=== PATIENT | female | born 1950 | race Caucasian/White ===

== ENCOUNTER 2017-12-04 12:00 | Outpatient (RCR) | payer MEDICARE, BC, SELFPAY ==
--- NOTE | 2017-12-04 12:00 | PTDS_ITS ---
Date: 12/04/17 Referring: Chasity Villatoro NP Diagnosis: R sacroiliitis PT Dx: R sided DJD, spondylolisthesis, Levoscoliosis, intrinsic weakness and poor stability. Reporting period: 09/20/17 to 12/04/17 Subjective: Kristy presenting to PT after one month absence while completing her self maintenance program as prescribed. She reports she is doing excellent. She has now returned to some crafting type activities which involve her reaching forward without pain. She is walking, completing all functional activities without any discomfort what so ever. She is compliant with her exercises, doing some or all of them on a daily basis. She continues with aquatic therapy 2x a week. Standardized Measures: MOLBPDQ: 0% Objective: Posture: Mild scoliotic curvature, elevation of R ilium vs L, accommodated by heel lift. Gait: WNL Palpation: Unremarkable through lumbopelvic region. ROM: Lumbar spine: WNL throughout without discomfort. Mild segmental hypomobility through lumbar spine. Hips: WNL and non-irritable bilaterally. Strength: Intrinsic strength is excellent, able to maintain stability of pelvis with both kathe open/close chain activities as well as standing weight bearing tasks. Gross strength is 5/5 throughout Neuro: WNL bilateral LE screen. Balance: WNL Treatment: Therapeutic Procedure [id number]: Complete above assessment and review compliance and need for consistency of her current strengthening program to continue maintaining her current condition. Also review importance of not completing anything too heavy or far away from her body, follow proper body press operator suggestions as per previous sessions. Treatment Time: 20 MINS Assessment: Nessa is appropriate for outpatient PT discharge, due to lack of remarkable impairment or functional level limitation. While she does continue to have some segmental limitations through the lumbar spine, this is consistent with her underlying arthritis. She has made great gains and has remained compliant with her strengthening program, now returning to a majority of her functional activities including craft work, which use to bother her without difficulty. Her progress is quite remarkable considering her failure to prior treatments of spine clinic and injections. G-Codes: Primary limitation was in the category of mobility, walking and moving around with discharge of [id number] based on MOLBPDQ, with projected goal of [id number]. GOALS HAVE ALL BE MET. STG: . 1: Patient feels she is able to attempt light yard work and gardening without fear of pain and without pain exceeding a 2/10 after 60 mins: 2: Patient is reporting a catching and locking of her back to be decreased by 25% since initiating PT service: 3: Patient reporting more consistency of pain presentation, so she is more likely to participate in long duration sitting activities such as having dinner with friends, or for prolonged standing at community events: 4: MOLBPDQ is 10%: LT: Symptoms are self manageable with independent HEP. 2: Patient reports 50% since initiating PT services and less fear with completely functional activities. 4: Not fearful of any lifting type activities and demonstrating good lifting mechanics. Plan: Discharge CAMRYN/sandra Alfred, please sign this discharge summary if you are in agreement with discharge plan of care. cc: PAL Amos
== END 2017-12-13 23:59 | disposition home or self-care (01) ==
LOC: PT 12:00
PROVIDERS: PCP Nurse Practitioner Family; Referring Provider Nurse Practitioner Family; Visit Provider Nurse Practitioner Family
DX: M46.1 Sacroiliitis, not elsewhere classified (principal); M51.16 Intervertebral disc disorders with radiculopathy, lumbar region
CPT/HCPCS: 97110

== ENCOUNTER 2018-05-19 15:48 | Outpatient (REF) | payer MEDICARE, BC, SELFPAY ==
[2018-05-19 21:41] LABS: Cholesterol 270 mg/dL (50-200); HDL Cholesterol 55 mg/dL (40-60); LDL CHOLESTEROL 177 mg/dL (<100); TSH (W/Ref FT4) 3.86 uIU/mL (0.358-3.74); Triglyceride 263 mg/dL (30-150)
[2018-05-19 21:59] LABS: FREE T4 1.19 ng/dL (0.76-1.46)
[2018-05-21 09:20] LABS: Hepatitis C Ab w Rflx HCV PCR Negative (NEGAT)
== END 2018-05-19 16:08 ==
LOC: NCHCN 15:48
PROVIDERS: PCP Nurse Practitioner Family; Visit Provider Nurse Practitioner Family
DX: E03.9 Hypothyroidism, unspecified (principal); E78.5 Hyperlipidemia, unspecified; F32.9 Major depressive disorder, single episode, unspecified; M54.5 Low back pain; R68.89 Other general symptoms and signs; E66.9 Obesity, unspecified; Z11.59 Encounter for screening for other viral diseases
CPT/HCPCS: 80061; 83721; 86803; 84439; 84443

== ENCOUNTER 2018-07-01 13:21 | Outpatient (REF) | payer MEDICARE, BC, SELFPAY ==
[2018-07-01 22:24] LABS: TSH (W/Ref FT4) 1.46 uIU/mL (0.358-3.74)
== END 2018-07-01 13:41 ==
LOC: NCHCN 13:21
PROVIDERS: PCP Nurse Practitioner Family; Visit Provider Nurse Practitioner Family
DX: E03.9 Hypothyroidism, unspecified (principal)
CPT/HCPCS: 84443

== ENCOUNTER 2019-06-22 17:23 | Outpatient (REF) | payer MEDICARE, BC, SELFPAY ==
[2019-06-22 21:02] LABS: Calculated LDL 132 mg/dL (<100); Cholesterol 226 mg/dL (<200); HDL Cholesterol 52 mg/dL (40-60); TSH (W/Ref FT4) 0.11 uIU/mL (0.36-3.74); Triglyceride 211 mg/dL (<150)
[2019-06-22 21:19] LABS: FREE T4 1.26 ng/dL (0.76-1.46)
== END 2019-06-22 17:43 ==
LOC: NCHCN 17:23
PROVIDERS: PCP Nurse Practitioner Family; Visit Provider Nurse Practitioner Family
DX: E03.9 Hypothyroidism, unspecified (principal); E66.9 Obesity, unspecified; F32.9 Major depressive disorder, single episode, unspecified; M25.562 Pain in left knee
CPT/HCPCS: 80061; 84439; 84443

== ENCOUNTER 2019-08-06 12:56 | Outpatient (REF) | payer MEDICARE, BC, SELFPAY ==
[2019-08-06 20:17] LABS: TSH (W/Ref FT4) 0.86 uIU/mL (0.36-3.74)
== END 2019-08-06 13:16 ==
LOC: NCHCN 12:56
PROVIDERS: PCP Nurse Practitioner Family; Visit Provider Nurse Practitioner Family
DX: E03.9 Hypothyroidism, unspecified (principal)
CPT/HCPCS: 84443

== ENCOUNTER 2020-06-29 09:19 | Outpatient (REF) | payer MEDICARE, SELFPAY ==
[2020-06-29 14:28] LABS: Calculated LDL 162 mg/dL (<100); Cholesterol 251 mg/dL (<200); HDL Cholesterol 57 mg/dL (40-60); TSH (W/Ref FT4) 3.18 uIU/mL (0.36-3.74); Triglyceride 161 mg/dL (<150)
== END 2020-06-29 09:20 | disposition home or self-care (01) ==
LOC: NCHCN 09:19
PROVIDERS: PCP Nurse Practitioner Family; Visit Provider Nurse Practitioner Family
DX: E78.5 Hyperlipidemia, unspecified (principal); E03.9 Hypothyroidism, unspecified
CPT/HCPCS: 80061; 84443

== ENCOUNTER 2021-08-07 20:24 | Outpatient (REF) | payer MEDICARE, SELFPAY ==
[2021-08-07 15:46] LABS: Calculated LDL 147 mg/dL (<100); Cholesterol 229 mg/dL (<200); HDL Cholesterol 70 mg/dL (40-60); TSH (W/Ref FT4) 0.09 uIU/mL (0.36-3.74); Triglyceride 63 mg/dL (<150)
[2021-08-07 16:11] LABS: FREE T4 1.17 ng/dL (0.76-1.46)
== END 2021-08-07 20:25 | disposition home or self-care (01) ==
LOC: NCHCN 20:24
PROVIDERS: PCP Nurse Practitioner Family; Visit Provider Nurse Practitioner Family
DX: F32.9 Major depressive disorder, single episode, unspecified (principal); F41.9 Anxiety disorder, unspecified; M85.80 Other specified disorders of bone density and structure, unspecified site; M25.562 Pain in left knee; M54.59 Other low back pain; E66.9 Obesity, unspecified; E78.5 Hyperlipidemia, unspecified; E03.9 Hypothyroidism, unspecified
CPT/HCPCS: 80061; 84439; 84443

== ENCOUNTER 2021-09-20 11:46 | Outpatient (REF) | payer MEDICARE, SELFPAY ==
[2021-09-20 21:39] LABS: TSH (W/Ref FT4) 1.41 uIU/mL (0.36-3.74)
== END 2021-09-20 11:47 | disposition home or self-care (01) ==
LOC: NCHCN 11:46
PROVIDERS: PCP Nurse Practitioner Family; Visit Provider Nurse Practitioner Family
DX: E03.8 Other specified hypothyroidism (principal)
CPT/HCPCS: 84443

== ENCOUNTER → 2022-08-02 13:04 | Outpatient (BNVA) | payer MEDICARE, SELFPAY | PROVIDERS: PCP Nurse Practitioner Family; Referring Provider Nurse Practitioner Family; Visit Provider Physical Therapy Assistant | DX: Z12.11 Encounter for screening for malignant neoplasm of colon (principal); Z80.0 Family history of malignant neoplasm of digestive organs ==

== ENCOUNTER 2022-09-18 06:14 | Day surgery (SDC) | payer MEDICARE, SELFPAY ==
[2022-09-18 06:39] VITALS: BP 144/76; PULSE 75; RESP 16; TEMP 36.7; O2SAT 98
--- NOTE | 2022-09-18 06:53 | ANES.PREOP_ITS ---
General Info Date of Service Date Performed: 09/18/22 Height: 5 ft 2 in Weight: 86.2 kg Body Mass Index (BMI): 34.7 Surgical Procedure: Operation Date: 09/18/22 07:35 Proposed Procedure Side Surgeon p Jasen Gupta MD Meds Allergies and Home Medications Allergies Allergy/AdvReac Type Severity Reaction Status Date / Time BEESTINGS Allergy Severe Localized Uncoded 09/18/22 06:36 swelling Home Medication Medication Instructions Recorded epinephrine 0.3 mg/0.3 mL 0.3 mg IM ONCE 03/24/14 injection, auto-injector (EpiPen 2-Cory) fluoxetine 20 mg capsule 20 mg PO 3x/wk 03/24/14 glucosamine sulfate 2KCl 1,000 mg 1,000 mg PO DAILY 03/24/14 tablet multivitamin (Daily Multi-Vitamin 1 ea PO DAILY 03/24/14 tablet) levothyroxine 112 mcg tablet 112 mcg PO DAILY 07/12/14 ascorbic acid (vitamin C) 1,000 mg 1,000 mg PO DAILY PRN 07/16/14 tablet omega-3 fatty acids 500 mg capsule 500 mg PO DAILY 02/04/15 (Fish Oil) calcium carbonate 500 mg calcium 500 mg PO DAILY 06/17/17 (1,250 mg) chewable tablet ibuprofen 200 mg tablet 400 mg PO Q6H PRN 06/17/17 turmeric root extract 500 mg 1,000 mg PO DAILY 01/10/22 capsule bisacodyl 5 mg tablet,delayed 5 mg PO ONCE colonscopy bowel prep 09/12/22 release (Dulcolax (bisacodyl)) #4 tabs polyethylene glycol 3350 17 238 g PO ONCE colonoscopy prep 09/12/22 gram/dose oral powder #238 grams Current Visit Medications: Current Medications Generic Name Dose Route Start Last Admin Trade Name Freq PRN Reason Stop Dose Admin Ringer's Solution 1,000 mls @ 80 mls/hr 09/18/22 06:00 IV 10/17/22 23:59 INFUSION ARMANDO IV Miscellaneous Supplies 1 each 09/18/22 06:00 Iv Access IV 10/17/22 23:59 DIRECTED ARMANDO Sodium Chloride 0 ml 09/18/22 06:00 Normal Saline Flush 10 Ml Syr IV 10/17/22 23:59 PRN PRN Sodium Chloride 0 ml 09/18/22 06:00 Normal Saline 10 Ml Vial IJ 10/17/22 23:59 DIRECTED PRN Sterile Water 0 ml 09/18/22 06:00 Water,Injection,Sterile 10 Ml Vial IJ 10/17/22 23:59 DIRECTED PRN [facility] Medical History Medical History Anxiety and depression Bee sting allergy Chronic lower back pain Eye pain Family history of colon cancer History of hypothyroidism Hyperlipidemia Obesity Osteopenia Surgical History Surgical History Appendectomy section History of colonoscopy (~09/20/14) 07/14/2007 Open Carpal Tunnel release (07/16/14) RIGHT WRIST DR. WALLACE Trigger Finger release (02/04/15) RIGHT THUMB/DR. WALLACE Tobacco Smoking/Tobacco Use Status: Former Tobacco Use Alcohol Alcohol Intake: current Alcohol intake frequency: a few times a week Alcohol type: wine Substance Use Substance use: Never Substance use type: does not use Vital Signs and Lab Results Vital Signs Most Recent Vital Signs in EMR: Most Recent Vital Signs Temp Pulse Resp BP Pulse Ox 36.7 C 75 16 144/76 H 98 09/18/22 06:39 09/18/22 06:39 09/18/22 06:39 09/18/22 06:39 09/18/22 06:39 Lab Results Blood Type / Crossmatch: No Data to Display Complete Blood Count: No Data to Display Complete Metabolic Panel: No Data to Display Liver Function Panel: No Data to Display Coagulation Panel: No Data to Display Cardiac Panel: No Data to Display Arterial Blood Gas: No Data to Display Venous Blood Gas: No Data to Display Pancreas Panel: No Data to Display Thyroid Panel: No Data to Display Infectious Disease: No Data to Display Blood Cultures: No Data to Display Toxicology Panel: No Data to Display Anesthesia Assessment and Plan Anesthesia History Personal History: No History of Anesthesia Complications Family History: No Family History of Anesthesia Complications Exercise Tolerance Exercise Tolerance: Metabolic Equivalents>4 Pertinent Negatives Pertinent Negatives: No Symptoms of GERD, No Major Cardiovascular Symptoms or Complaints, No Major Pulmonary Symptoms or Complaints and No History of CVA/TIA Cardiac & Pulmonary Exam Cardiac Exam: Normal S1/S2 Heart Sounds Pulmonary Exam: Clear Bilateral Breath Sounds Implantable Cardiac Device Does patient have a Pacemaker or an ICD?: No Airway Exam Known Difficult Airway: No Mallampati Class: 2 Mouth Opening: Normal (> 3cm) Thyromental Distance: Greater than 3 cm Neck Range of Motion: Full ROM Neck Circumference: Normal Teeth Condition: Normal Dentition ASA Classification ASA Score: ASA 2 Emergency Case?: No NPO Status NPO Status: NPO Clears >2 hours, Solids >8 hours Anesthesia Plan Resuscitation Status: Full Code Anesthesia Technique: General Anesthesia Airway Planned: Natural Airway Monitors Used: Standard Monitors
[2022-09-18] MEDS: Lactated Ringers 1,000 ML 80 ML IV (06:55)
[2022-09-18 07:29] VITALS: BMI 34.7
--- NOTE | 2022-09-18 07:33 | W.SURGCON ---
Date of service: 09/18/22 Time of Service: 07:30 Assessment and Plan Assessment and plan (1) Encounter for colonoscopy in patient with family history of colon cancer: Status: Acute Assessment and plan: 71-year-old woman with no symptoms but increased risk for colorectal cancer due for surveillance colonoscopy. Overall plan: Colonoscopy History of Present Illness Narrative: The patient is a 71-year-old woman who has had prior colonoscopies without any findings on them. Her father had colon cancer. Her last colonoscopy was 8 years ago. She denies any symptoms. This is for routine/surveillance purposes Her only surgical history is that of a and appendectomy. PFSH All Active Problems (Updated 09/18/22 @ 07:37 by Thaddeus Gupta MD) Encounter for colonoscopy in patient with family history of colon cancer (Acute) Medical History (Updated 09/18/22 @ 07:37 by Thaddeus Gupta MD) Anxiety and depression Bee sting allergy Chronic lower back pain Eye pain Family history of colon cancer History of hypothyroidism Hyperlipidemia Obesity Osteopenia Surgical History Appendectomy section History of colonoscopy (~09/20/14) 07/14/2007 Open Carpal Tunnel release (07/16/14) RIGHT WRIST DR. WALLACE Trigger Finger release (02/04/15) RIGHT THUMB/DR. WALLACE Family History (Updated 08/05/22 @ 20:41 by MARIA INES Giordano) Father Colon cancer Social History (Updated 08/05/22 @ 20:40 by MARIA INES Giordano) Smoking/Tobacco Use Status: Former Tobacco Use Quit Date: 04/15/79 Smoking risk assessment performed?: Yes Alcohol Intake: current Alcohol Intake frequency: a few times a week Alcohol type: wine Drug use: Never Substance use type: does not use Do you feel safe at home: Yes Do you feel safe in your relationship?: Yes Exam Narrative Exam Narrative: General: Nontoxic, comfortable and interactive Neuro: Alert and oriented x3 Psych: Appropriate mood and affect, good insight and understanding into condition Chest: Nonlabored breathing and no wheezing. Heart: Regular Results Last Vital Signs Temp 98.1 F 09/18/22 06:39 Pulse 75 09/18/22 06:39 Resp 16 09/18/22 06:39 BP 144/76 H 09/18/22 06:39 Pulse Ox 98 09/18/22 06:39
--- NOTE | 2022-09-18 07:58 | BOWEL_PTH ---
PATIENT: Kristy Zaldivar LOC: [facility] U#:[id number] AGE/SX: 71/F ROOM: RE09/18/[address]: Thaddeus Gupta : 1950 BED: DIS: 09/18/2022 SPEC #: [id number] RECD: 09/18/22 12:24 STATUS: [facility] #: [id number] KACI: 09/18/22 07:[address]: Thaddeus Gupta DEPT: Surgical Specimen RECD BY: Evelyn Chaidez ENTERED: 09/18/22 12:25 SP TYPE: Bowel OTHR DR: Maria G Skaggs Tissues: 1 - BIOPSY BOWEL 2 - BIOPSY BOWEL Procedures: GROSS AND MICRO LEVEL 4 Comments:
--- NOTE | 2022-09-18 08:07 | W.COLOREPORT ---
Date of service: 09/18/22 Time of Service: 08:00 Colonoscopy Report Procedure Description: Procedures performed: 1. Colonoscopy with snare polypectomy x2 Preoperative diagnosis: Surveillance colonoscopy Postoperative diagnosis: Colon polyps, mild sigmoid diverticulosis Surgeon: Adalberto Gupta Anesthesia: Pee Indication for procedure: Patient is a 71-year-old woman with no symptoms, no prior findings on her previous colonoscopies. She has a family history of colon cancer in her father. Findings: A 3 to 5 mm sessile polyp was removed from the cecum with hot snare technique.? Another polyp of the same size was removed from the ascending colon with the same technique. Minimal/mild diverticular changes only in the sigmoid colon.? Surveillance/follow-up recommendations: Because of the family history and the findings today, I recommend another colonoscopy to be done in 3 years Complications: None Blood loss: Minimal Specimens:?? YES Quality of Prep:?? Good Procedure in detail: Written consent was obtained from the patient who was in agreement with the risks, benefits and indications of the procedure.? We went to the endoscopy suite and laid the patient in left lateral decubitus position.? Anesthesia was administered which was tolerated well.? A timeout was performed and when we are all in agreement we began the procedure. Digital rectal exam and visual examination was performed and within normal limits.? A well?lubricated colonoscope was advanced without difficulty all the way to the cecum identified by the ileocecal valve, and triangular folds and appendiceal orifice.? The terminal ileum was intubated and appeared normal. It was then slowly withdrawn.?? Retroflexion was performed in the rectum.? The findings/interventions are noted above. The scope was then removed and the patient tolerated the procedure well and was then taken back to the PACU in hemodynamically stable condition.
[2022-09-18 08:11] VITALS: BP 159/87; PULSE 85; RESP 18; TEMP 36.5; O2SAT 95
[2022-09-18 08:45] VITALS: BP 138/70; PULSE 64; RESP 16; TEMP 36.4; O2SAT 96
--- NOTE | 2022-09-18 09:35 | W.ANESPOSTOP ---
Postoperative Evaluation Date, Time and Location Date Performed: 09/18/22 Time Performed: 09:35 Patient Location: Day Surgery Unit Vital Signs Most Recent Imported Vital Signs: Most Recent Vital Signs Temp Pulse Resp BP Pulse Ox 36.4 C L 64 16 138/70 96 09/18/22 08:45 09/18/22 08:45 09/18/22 08:45 09/18/22 08:45 09/18/22 08:45 Pain Score Most Recent Pain Score: Most Recent Pain Score Pain Level 0 09/18/22 08:45 Assessment Mental Status: Awake (Alert & Oriented to Patient Baseline) Airway and Respiratory Function: Patent airway with normal (patient baseline) respiratory exam Cardiovascular Function: Hemodynamically Stable Hydration Status: Adequately Hydrated Nausea & Vomiting: No Nausea or Vomiting Pain: Pt. Denies Any Pain Peripheral Nerve Block: Patient did not receive a nerve block Postoperative Comments:: Seen earlier today and doing well. Patient appropriate for discharge. All questions answered.
== END 2022-09-18 09:10 | disposition home or self-care (01) ==
PROVIDERS: PCP Nurse Practitioner Family; Visit Provider Student in an Organized Health Care Education/Training Program
PROC: 0DJD8ZZ Inspection of Lower Intestinal Tract, Via Natural or Artificial Opening Endoscopic (ICD-10-PCS; CPT 45378; principal; 2022-09-18 07:30)
DX: Z12.11 Encounter for screening for malignant neoplasm of colon (principal); Z80.0 Family history of malignant neoplasm of digestive organs; D12.0 Benign neoplasm of cecum; K57.30 Diverticulosis of large intestine without perforation or abscess without bleeding
CPT/HCPCS: 45385; 88305

== ENCOUNTER 2022-11-06 15:06 | Outpatient (REF) | payer MEDICARE, SELFPAY ==
[2022-11-06 22:02] LABS: Vitamin B12 441 pg/mL (193-986)
[2022-11-06 22:43] LABS: Vitamin D 25 Total 37.4 ng/mL (30-100)
== END 2022-11-06 15:07 | disposition home or self-care (01) ==
LOC: NCHCN 15:06
PROVIDERS: PCP Nurse Practitioner Family; Visit Provider Nurse Practitioner Family
DX: F41.9 Anxiety disorder, unspecified (principal); M85.80 Other specified disorders of bone density and structure, unspecified site; Z00.00 Encounter for general adult medical examination without abnormal findings; G62.9 Polyneuropathy, unspecified; R05.8 Other specified cough; M54.50 Low back pain, unspecified; E66.9 Obesity, unspecified; E03.9 Hypothyroidism, unspecified
CPT/HCPCS: 82306; 82607; 84443

== ENCOUNTER 2023-11-05 17:15 | Outpatient (REF) | payer MEDICARE, SELFPAY ==
[2023-11-05 15:39] LABS: ALT 30 U/L (14-59); AST 13 U/L (15-37); Albumin 3.6 g/dL (3.4-5.0); Alkaline Phosphatase 94 U/L (46-116); Anion Gap 7.4 mmol/L (3-11); BUN 18 mg/dL (7-18); CO2 29.6 mmol/L (21.0-32.0); CREATININE 0.8 mg/dL (0.55-1.02); Calcium 9.2 mg/dL (8.5-10.1); Calculated LDL 120 mg/dL (<100); Chloride 106 mmol/L (98-107); Cholesterol 203 mg/dL (<200); Estimated GFR 77.75 (mL/min/1.73m2); Glucose 107 mg/dL (74-106); HDL Cholesterol 75 mg/dL (40-60); Potassium 4.8 mmol/L (3.5-5.1); Sodium 143 mmol/L (136-145); TSH (W/Ref FT4) 2.46 uIU/mL (0.36-3.74); Total Protein 6.7 g/dL (6.4-8.2); Triglyceride 43 mg/dL (<150)
== END 2023-11-05 17:16 | disposition home or self-care (01) ==
LOC: NCHCN 17:15
PROVIDERS: PCP Nurse Practitioner Family; Visit Provider Nurse Practitioner Family
DX: E03.9 Hypothyroidism, unspecified (principal); E78.5 Hyperlipidemia, unspecified; M85.88 Other specified disorders of bone density and structure, other site
CPT/HCPCS: 80053; 80061; 82306; 84443

== ENCOUNTER 2024-11-03 15:25 | Outpatient (REF) | payer MEDICARE, SELFPAY ==
[2024-11-03 20:53] LABS: TSH (W/Ref FT4) 3.03 uIU/mL (0.36-3.74)
== END 2024-11-03 15:26 | disposition home or self-care (01) ==
LOC: NCHCN 15:25
PROVIDERS: PCP Nurse Practitioner Family; Visit Provider Nurse Practitioner Family
DX: E03.9 Hypothyroidism, unspecified (principal)
CPT/HCPCS: 84443